=== PATIENT | female | born 1950 | race Caucasian/White ===

== ENCOUNTER → 2019-11-16 | Outpatient (CLI) | payer MEDICARE | END | disposition home or self-care (01) | LOC: CFH 09:37 | PROVIDERS: ATTEND Family Medicine | DX: M85.88 Other specified disorders of bone density and structure, other site (principal); M81.0 Age-related osteoporosis without current pathological fracture | CPT/HCPCS: 77080 ==

== ENCOUNTER → 2020-02-20 | Outpatient (CLI) | payer MEDICARE | END | disposition home or self-care (01) | LOC: CFH 12:15 | PROVIDERS: ATTEND Family Medicine | DX: R92.2 Inconclusive mammogram (principal); N63.13 Unspecified lump in the right breast, lower outer quadrant | CPT/HCPCS: 76642; 77065 ==

== ENCOUNTER → 2020-03-01 | Outpatient (CLI) | payer MEDICARE ==
[~2020-03-01] MED LIST: LIDOCAINE 1%-EPI 1:100K, 20ML ONE; SODIUM BICARBONATE 4.2%, 5ML ONE
== END | disposition home or self-care (01) ==
LOC: CFH 07:09
PROVIDERS: ATTEND Family Medicine
DX: N63.13 Unspecified lump in the right breast, lower outer quadrant (principal); N60.21 Fibroadenosis of right breast; Z88.1 Allergy status to other antibiotic agents; Z88.2 Allergy status to sulfonamides; Z72.89 Other problems related to lifestyle
CPT/HCPCS: 19083; 88305; 88341; 88342; 77065